=== PATIENT | male | born 1975 | race Caucasian/White ===

== ENCOUNTER 2019-10-17 08:16 | Emergency (ER) | payer OTHER ==
[2019-10-17] MEDS ORDERED: TOPICAL SKIN ADHESIVE 1 EACH AMP TOPICAL ONE (08:40)
[2019-10-17] MEDS ORDERED: LIDOCAINE 1% INJ 10MG/ML (20 ML MDV) SQ ONE (08:41)
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
[2019-10-17] MEDS ORDERED: DIPH,PERTUS(ACELL)TETVAC-LF 0.5 ML VIAL IM ONE (10:23)
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
[2019-10-17 11:27] VITALS: BP 119/79; PULSE 90; RESP 20; TEMP 98.6
== END 2019-10-17 11:25 | disposition home or self-care (01) ==
LOC: EC 08:16
DX: S01.01XA Laceration without foreign body of scalp, initial encounter (principal); S61.411A Laceration without foreign body of right hand, initial encounter; Z53.29 Procedure and treatment not carried out because of patient's decision for other reasons; V57.5XXA Driver of pick-up truck or van injured in collision with fixed or stationary object in traffic accident, initial encounter; Y92.410 Unspecified street and highway as the place of occurrence of the external cause
CPT/HCPCS: 73030; 73130; 71046; 72125; 70450; 99285; 12032; 12002; J2001